=== PATIENT | female | born 1985 | race Caucasian/White ===

== ENCOUNTER 2022-12-16 07:12 | Outpatient (CLI) | payer OTHER, SELFPAY ==
--- NOTE | 2022-12-16 07:15 | CRLHL7_ITS ---
For Patients: As a result of the Century Cures Act, medical imaging exams and procedure reports are released immediately into your electronic medical record. You may view this report before your referring provider. If you have questions, please contact your health care provider. INDICATION: 37 year-old female. Genetic susceptibility the other malignant neoplasm. TECHNIQUE: Transabdominal and transvaginal pelvic ultrasound. FINDINGS: The uterus is retroverted and measures 8.3 x 4.6 x 6.8 cm. The endometrial stripe measures 5 mm. Normal-sized ovaries containing numerous small follicles. The right ovary measures 4.3 x 2.4 x 2.5 cm and the left ovary measures 4.3 x 1.5 x 2.5 cm. Blood flow is identified in the ovaries. No free pelvic fluid. IMPRESSION: Retroverted uterus. No uterine or ovarian masses. Dictated by Liang Goodwin MD @ 12/16/2022 8:26:22 AM (Electronically Signed)
== END 2022-12-16 07:13 | disposition home or self-care (01) ==
LOC: US 07:13
PROVIDERS: PCP Family Medicine; Visit Provider Obstetrics & Gynecology
DX: Z15.09 Genetic susceptibility to other malignant neoplasm (principal)
CPT/HCPCS: 76830; 76856

== ENCOUNTER 2023-03-05 08:44 | Day surgery (SDC) | payer OTHER, SELFPAY ==
[2023-03-05] VITALS (33 sets, daily range): BP systolic 101–128; BP diastolic 64–82; PULSE 67–107; RESP 12–20; TEMP 36.5–37.3; O2SAT 93–100; BMI 27.3
[2023-03-05] MEDS: LACTATED RINGERS 1000 ML 1,000 ML 100 ML IV (08:45)
[2023-03-05 09:03] LABS: Ur HCG Qualitative* Negative (Negative)
[2023-03-05] MEDS: SODIUM CHLORIDE 0.9 % (FLUSH) 10 ML SYRINGE IVF (09:18)
[2023-03-05 09:31] LABS: Hemoglobin* 12.6 gm/dL (12.0-16.0)
[2023-03-05 10:04] LABS: Creatinine* 0.8 mg/dL (0.5-1.5); Est. Creatinine Clearance* 84.96; Estimated Glomerular Filt Rate 96 ml/min
--- NOTE | 2023-03-05 11:30 | W.PM.H&PU_ITS ---
History & Physical Update History & Physical Update H&P Reviewed and patient assessed: No changes noted H&P Updates: Preoperative diagnosis: Triplett syndrome Planned procedures: Total laparoscopic hysterectomy with bilateral salpingo- oophorectomy, pelvic washings, cystoscopy Physical exam: General: No acute distress Psych: Alert and oriented x3, full affect HEENT: Normocephalic, atraumatic Heart: Regular rate and rhythm, no murmur rub or gallop Lungs: Clear to auscultation bilaterally Labs: Blood type A positive Hemoglobin 12.6 Creatinine 0.8 HCG negative
--- NOTE | 2023-03-05 11:48 | P.NB_ITS ---
Nerve Block Nerve Block Time Seen by Provider: 12:18 Date Seen: 03/05/23 Type of block requested by surgeon for post-operative analgesia: TAP Side: bilateral Time out performed: Yes Verification of patient name: Yes Verification of date of : Yes Site marking: site marked Name of person performing procedure: Mario Continuous monitoring Was continuous monitoring of O2 sat, B/P, monitoring tech, recorded every 15 minutes?: Yes Procedure Checklist: sterile prep, needles and gloves Ultrasound guided. Images saved: Yes Medications given in 5ml increments after negative aspiration: Marcaine %: 0.25 mL: 30 Needle gauge: 20 and Exparel mL: 10 Patient tolerated procedure well: Yes Additional comments: Needle noted adjacent to nerve Block Charges Block Charge (with Pro Fee): TAP Bilateral Use of Ultrasound Machine for Block: Yes- US Guidance/pain block
--- NOTE | 2023-03-05 11:48 | W.ANESCHARGE ---
Anesthesia Charges Start Date/Time Anesthesia Start Date: 03/05/23 Anesthesia Start Time: 12:12 Stop Date/Time Anesthesia Stop Date: 03/05/23 Anesthesia Stop Time: 15:03
[2023-03-05] MEDS: CEFAZOLIN 2 GM INJ IVP (12:22)
--- NOTE | 2023-03-05 15:04 | W.ANESCHARGE ---
Anesthesia Charges Start Date/Time Anesthesia Start Date: 03/05/23 Anesthesia Start Time: 12:12 Stop Date/Time Anesthesia Stop Date: 03/05/23 Anesthesia Stop Time: 15:03
--- NOTE | 2023-03-05 15:05 | W.PM.GYNPROC ---
Procedure Note Pre-op diagnosis: Triplett Syndrome Post-op diagnosis: same Procedure: Risk-reducing laparoscopic hysterectomy with bilateral salpingo-oophorectomy, pelvic washings, cystoscopy Anesthesia: GETA Complications: None Surgeon: La Butts MD Paper Cup Handle Machine Operator: Nayeli Omalley Estimated blood loss (mL): 25 IV fluids (mL): 1,500 Pathology: specimen obtained, sent to pathology Condition: stable Disposition: PACU Findings: 1. Exam under anesthesia revealed a normal appearance to the vulva, vagina and cervix. Bimanual exam revealed a retroverted uterus without any palpable masses. There were no palpable adnexal masses. 2. Upon laparoscopy, survey of the upper abdomen revealed a normal appearance to the inferior edge of the liver, gallbladder and stomach. Bowels were grossly normal appearance, as was the appendix. Survey of the pelvis revealed normal appearance to the uterus. Bilateral tubes and ovaries were normal in appearance. The cul-de-sac and bladder reflection were normal in appearance. Procedure Description: Patient was taken to the operating room with IV running. She received cefazolin in preoperative prophylaxis. She was positioned in dorsal lithotomy position with her legs fully supported in Yellofin stirrups. General anesthesia was administered. She was prepped and draped in the usual sterile fashion. Pelvic exam under anesthesia was performed for the above-noted findings. Speculum was inserted. Cervix visualized and grasped along its anterior lip with a single-tooth tenaculum. Cervix was dilated with Hegar dilators to accommodate the VCare uterine manipulator. A small-sized colpotomizer cup was selected. The tip of the uterine manipulator was inserted through the cervix into the uterine cavity and the balloon was inflated. The speculum was removed. The colpotomy cup was advanced, surrounding the cervix, and the proximal occluder was moved up along the shaft of the VCare and fixed in place. Grey catheter was placed. Patient's legs were then placed in neutral position. Attention was turned to patient's abdomen. Infraumbilical area was infiltrated with a small amount of Marcaine. A 5 mm infraumbilical incision was made with a scalpel and carried down to the underlying layer of fascia with the hemostat. 5 mm camera was placed within the 5 mm Fios Kii trocar, and advanced under direct visualization through the anterior abdominal wall into the peritoneal cavity, while tenting up the anterior abdominal wall. The trocar was removed. The balloon was inflated, holding the port in place. Pneumoperitoneum was achieved. Survey of the abdomen and pelvis revealed the above-noted findings. Three additional port sites were created. The first was in the patient's left lower quadrant, just superomedial to the left ASIS. The second was a hand's breadth superior to and slightly medial to the first. The third was in the patient's right lower quadrant, just superomedial to the right ASIS. An 11 mm incision was made in the left lower quadrant, and a 5 mm incision was made at the other 2 sites, after assuring that large vessels were out of harm's way. A 10 mm Fios Kii port was inserted at the left lower quadrant site, and a 5 mm Fios Kii port at each of the other 2 sites, under direct visualization and without complication. The balloon on each of the four ports was inflated, holding each in place. Attention was first turned to the left infundibulopelvic ligament, which was held away from the pelvic sidewall and divided 2 cm away from the lateral end of the ovary, using the Thunderbeat bipolar cautery device. Dissection was then carried anteriorly along the broad ligament. The left round ligament was cauterized and transected in its midportion. The leaves of the broad ligament were , and the bladder flap was created anteriorly, moving from [id number]. The bladder reflection was found to be well below the colpotomy cup. The left uterine artery was 1st skeletonized, then cauterized and transected. Attention was then turned to the right infundibulopelvic ligament, which was similarly held away from the pelvic sidewall and divided 2 cm away from the lateral end of the ovary. Dissection was carried anteriorly along the broad ligament. The broad ligament was cauterized and transected in its midportion. The leaves of the broad ligament were , and a bladder flap was created, moving laterally to medially, meeting the dissection that was begun on left side. The right uterine artery was 1st skeletonized, then cauterized and transected. The vaginal fornix was then entered anteriorly with the monopolar paddle, using the colpotomizer cup as a guide. This device was moved along the circumference of the colpotomizer cup, until the uterus and cervix were freed from their attachments to the pelvis. The uterus was pulled into the patient's vagina, maintaining the pneumoperitoneum. A 2 0 V lock suture was inserted through the left lower quadrant port. Using laparoscopic needle drivers, the vaginal cuff was closed in a running fashion, incorporating the distal most aspects of the uterosacral ligaments bilaterally into the closure. Closure proceeded from right to left, and then an additional stitch were placed moving more medially to assure that the closure remained intact. Suture was cut. Ports were left in place but all instruments were removed and pneumoperitoneum was released. Patient's legs were placed back in lithotomy position. The uterus was removed from the vagina and was sent to pathology for further analysis. Speculum exam was performed, showing an intact cuff with no obvious active bleeding. The Grey catheter was removed from the bladder, and the cystoscope was assembled with saline inflow, outflow, and light cord in place. Cystoscope was advanced through the urethra into the bladder, and survey of the mucosa revealed a normal appearance. The bladder dome was intact. Bilateral ureteral jets were noted. Cystoscope was removed and Grey catheter replaced. Patient's legs were again placed in neutral position. Insufflator was reattached to the port and pneumoperitoneum again achieved. Survey of the pelvis revealed hemostasis. The 11 mm Fios Kii port in the left lower quadrant was removed after balloon on the port was deflated. The Ankush-Joey laparoscopic closure device was inserted through this port. With the help of this device, the fascia was closed with a single suture of 0-Vicryl. Procedure was deemed complete. The balloons of all remaining port sites were deflated, and all ports were removed after pneumoperitoneum was released. The skin of each port site was closed in a subcuticular fashion with 4 0 Monocryl. Surgical glue was applied above this. Patient tolerated procedure well and was taken to recovery area in stable condition.
--- NOTE | 2023-03-05 15:12 | PC.NURSE ---
IV patent and running with no complications noted upon arrival to PACU1.
[2023-03-05] MEDS: HYDROmorphone 0.5 mg/0.5 ml inj IVP ×3 (15:29→15:51)
[2023-03-05] MEDS: KETOROLAC 30 MG/ML inj IVP ×2 (16:07→21:31)
[2023-03-05] MEDS: ACETAMINOPHEN INJ 1,000 MG/100 ML VIAL 400 MG IVPB (16:10)
[2023-03-05] MEDS: fentaNYL 100 MCG/2 ML inj 50 MCG IVP (16:21)
[2023-03-05] MEDS: ACETAMINOPHEN 325 MG TABLET 650 MG PO (18:40)
[2023-03-05] MEDS: LACTATED RINGERS 1000 ML 1,000 ML 125 ML IV (18:42)
--- NOTE | 2023-03-05 19:09 | PC.NURSE ---
End of Shift: Patient pleasant and cooperative. Patient vitally stable, lungs clear, BS WNL, IV running LR at 125. Abdominal lap sites x4 C/D/I. Patient currently rates pain 2/10, only tylenol given. Patient has aquaK pad applied to abdomen. Patient taking in fluids and tolerating regular diet, denies nausea. Grey intact and draining.
[2023-03-06 03:12] VITALS: BP 132/94; PULSE 90; RESP 18; TEMP 37.6; O2SAT 99
[2023-03-06] MEDS: KETOROLAC 30 MG/ML inj IVP (03:16)
[2023-03-06 05:20] LABS: Hemoglobin* 11.5 gm/dL (12.0-16.0)
[2023-03-06 05:44] LABS: Creatinine* 0.6 mg/dL (0.5-1.5); Est. Creatinine Clearance* 113.27; Estimated Glomerular Filt Rate 117 ml/min
--- NOTE | 2023-03-06 06:46 | PC.NURSE ---
[id number]: Patient pleasant and cooperative with cares. Rates pain 2-4/10 with scheduled medications for relief. Aqua-K pad used intermittently. Grey d/c. Independent. Eating and voiding.
[2023-03-06 08:30] VITALS: BP 120/82; PULSE 76; RESP 16; TEMP 37; O2SAT 100
--- NOTE | 2023-03-06 09:00 | P.DS_ITS ---
DS: Providers Provider Time Seen by Provider: 07:15 Date Seen: 03/06/23 Primary care physician: Jenny Martin MD Attending Physician on discharge: Kristal العراقي MD Date of Discharge: 03/06/23 DS: Diagnosis Discharge Diagnosis (1) Status post hysterectomy: Status: Acute Problem details: Total laparoscopic hysterectomy, bilateral salpingo-ophorectomy. SERVICE ASSISTANT-Discharge Summary Hospital Course Hospital Course Narrative: Patient is a 37 year old admitted on 03/05/23 for elective surgery. Indication for surgery: Triplett Syndrome. She had an uncomplicated surgery. Postoperative course has been uneventful. Vitals have been stable. She has remained afebrile. Today, on postoperative day 1, she reports the pain is well controlled. She has been able to ambulate Without difficulty. She is tolerating regular diet. She is passing flatus. Grey catheter has been removed, and she is voiding without difficulty. Time Spent with Patient Time attestation: Total time spent providing and/or coordinating discharge services: Time spent: Less than 30 minutes SERVICE ASSISTANT - Exam Physical Exam: Vital signs: Temp Pulse Resp BP Pulse Ox O2 Del Method 98.6 F 76 16 120/82 100 Room Air 03/06/23 08:30 03/06/23 08:30 03/06/23 08:30 03/06/23 08:30 03/06/23 08:30 03/06/23 08:30 Narrative: VITAL SIGNS: As noted above. GENERAL APPEARANCE: Alert, cooperative female in no acute distress. MOOD & AFFECT: Normal. .ABDOMEN: Soft, non-distended and appro priately tender, incisions healing well no surrounding erythema, induration or abnormal discharge. : Minimal spotting. EXTREMITIES: Nonedematous. Well perfused. Nontender. SERVICE ASSISTANT - DS: Data Data Completed and Pending Labs on day of discharge: Labs from last 24 hours 03/06/23 03/05/23 03/05/23 05:10 09:21 08:44 Hgb 11.5 L 12.6 Creatinine 0.6 0.8 Estimated Creat Clear 113.27 84.96 Estimated GFR 117 96 Urine HCG, Qual Negative Blood Type A Positive Antibody Screen NEGATIVE Procedures Procedures: Procedures Operation Date: 03/05/23 13:05 Actual Procedure Side Surgeon p Total Laparoscopic Hysterectomy, bilateral Salpingectomy, Oophorectomy, Cyst oscopy, Pelvic Washings La Butts MD Discharge Plan Discharge Disposition: Home, Self-Care Discharging Surgeon: Fariba العراقي Follow-Up Appointment: [address] [facility] clinic Prescriptions: Continued sertraline 100 mg tablet 200 mg PO DAILY Qty: 180 3RF Rx Instructions: 2 tab daily No Action acetaminophen 325 mg capsule 650 mg PO Q6H PRN estradiol 1 mg tablet 1 mg PO QDAY Qty: 30 12RF Activity Level: Activity as Tolerated and No Weight Bearing Activity Detail: No lifting more than 15 pounds for 6 weeks, nothing vaginally for that same amount of time. Discharge Diet: Regular Patient Instructions: Ibuprofen (By mouth), Surgical Site Infections (DC), Laparoscopic Hysterectomy (DC) Forms: Work/School Release Follow-up: Jenny Martin MD [Primary Care Provider] - La Butts MD [Staff Physician] - 03/20/23 8:45 am ([facility]) Discharge Orders: Discharge Order (Routine); Ordered 03/06/23 Ordered By: Fariba العراقي
[2023-03-06] MEDS: SERTRALINE 100 MG TABLET 200 MG PO (09:14)
[2023-03-06] MEDS: IBUPROFEN 600 MG TABLET PO (09:59)
--- NOTE | 2023-03-06 10:13 | PC.NURSE ---
Discharge: Patient pleasant and cooperative. Patient vitally stable, lungs clear, BS WNL, IV removed, catheter intact. Patient abdominal lap sites x4 C/D/I. Patient rates pain at most 3/10, schedule tylenol given. Patient tolerating regular diet and urinating well. Patient signed belongings sheet and discharge form. Patient had no further questions regarding discharge. Patient left the floor to home by wheelchair at 1011.
== END 2023-03-06 10:11 | disposition home or self-care (01) ==
LOC: MEDSURG 12:02 → OR 13:47 → MEDSURG 13:49
PROVIDERS: PCP Family Medicine; Visit Provider Obstetrics & Gynecology
PROC: 0UT94ZZ Resection of Uterus, Percutaneous Endoscopic Approach (ICD-10-PCS; CPT 58571; principal; 2023-03-05 12:45)
DX: Z15.09 Genetic susceptibility to other malignant neoplasm (principal); Z80.3 Family history of malignant neoplasm of breast; Z80.49 Family history of malignant neoplasm of other genital organs; G89.18 Other acute postprocedural pain
CPT/HCPCS: 58571; 00840; 36415; 64488; 76942; 81025; 82565; 85018; 86850; 86900; 86901; 88305; 88307; A9270; C9290; J0131; J0330; J0665; J0690; J1100; J1170; J1200; J1885; J2371; J2405; J2704; J3010; J3475; J7120

== ENCOUNTER 2024-04-05 09:11 | Outpatient (CLI) | payer BC, SELFPAY ==
--- NOTE | 2024-04-05 09:15 | CRLHL7_ITS ---
For Patients: As a result of the Century Cures Act, medical imaging exams and procedure reports are released immediately into your electronic medical record. You may view this report before your referring provider. If you have questions, please contact your health care provider. BILATERAL BREAST MRI WITHOUT AND WITH GADOLINIUM CLINICAL HISTORY: Personal history of Triplett syndrome. Family history breast cancer. INDICATION FOR BREAST MRI: Screening breast MRI in this high-risk woman. COMPARISON STUDIES: Bilateral mammogram 10/16/2023. CONTRAST: Dotarem 20 mL. TECHNIQUE: The patient was positioned prone using a breast coil. Multiple imaging sequences were obtained using 1-1.5 mm thick slices with no gap. The image sequences include T2-weighted STIR in the axial plane, T1-weighted nonfat-saturated gradient echo in the axial plane, pre- and post-contrast T1-weighted FLASH 3D with fat suppression in the axial plane, and T1-weighted FLASH high resolution 3D with fat suppression in the sagittal plane. Image post-processing was performed on a [employer] workstation. Complex 3D rendering including maximum intensity projections (MIPS) and volumetric renderings were obtained to optimize visualization of the extent of pathology and relationship to the nipple, skin, and chest wall. This aids in determining feasibility of breast conservation surgery. Subtraction, multiplanar reconstruction, mean curve determination, and angiogenesis mapping were also performed. The study was technically adequate. FINDINGS: Amount of Fibroglandular Tissue: Scattered fibroglandular tissue. Breast Background Enhancement: Mild background enhancement. No suspicious mass or non-mass enhancement in either breast. No suspicious lymph nodes. IMPRESSIONS AND RECOMMENDATIONS: Negative for signs of malignancy. Follow-up with annual screening mammography. If continuing breast MRI this is best offset from the mammogram by 6 months. BI-RADS Category 1: Negative Dictated by Ashley Dodge MD @ 04/06/2024 11:02:03 AM jj/Dictated by: Ashley Dodge MD @ 04/06/2024 2:46:00 PM (Electronically Signed)
--- OUTSIDE RECORDS SUMMARY | 2024-04-05 09:15 | XMS_ITS | Referral Summary ---
Author Organization [facility] Address [address] [place] [id number] Care Team Providers Care Fish Hatchery Manager Name Role Phone No Ref-Primary, Physician Primary Care Provider Social History Tobacco Use Types Packs/Day Years Used Date Smoking Tobacco: Never Assessed Sex and Gender Information Value Date Recorded Sex Assigned at Not on file Gender Identity Not on file Sexual Orientation Not on file Plan of Treatment Not on file Care Teams Fish Hatchery Manager Relationship Specialty Start Date End Date No Ref-Primary, Physician PCP - General 07/29/19
--- OUTSIDE RECORDS SUMMARY | 2024-04-05 09:15 | XMS_ITS | Clinical Summary ---
Author Organization [facility] Address [address] [place] [id number] Care Team Providers Care Cell Changer Name Role Phone No Ref-Primary, Physician Primary Care Provider Social History Tobacco Use Types Packs/Day Years Used Date Smoking Tobacco: Never Assessed Sex and Gender Information Value Date Recorded Sex Assigned at Not on file Gender Identity Not on file Sexual Orientation Not on file Plan of Treatment Not on file Care Teams Cell Changer Relationship Specialty Start Date End Date No Ref-Primary, Physician PCP - General 07/29/19
--- OUTSIDE RECORDS SUMMARY | 2024-04-05 09:15 | XMS_ITS | Clinical Summary ---
Author Organization [employer] [facility] Address [place], [place] [address] Care Team Providers Care Child Support Agent Name Role Phone Haylee Figueredo Primary Care Provider [phone] Allergies Active Allergy Reactions Criticality Noted Date Comments Vortioxetine Other - Describe In Comment Field Unknown 03/11/2022 Makes OCD worse Medications Medication Sig Dispensed Refills Start Date End Date Status estradioL (ESTRACE) 1 mg tablet Take 1 mg by mouth once daily. 04/28/2023 Active hydrOXYzine HCL (ATARAX) 10 mg tabletIndications: Mixed obsessional thoughts and acts Take 1-2 Tablets (10-20 mg) by mouth 3 times daily if needed for Anxiety (sleep). 90 Tablet 1 03/10/2024 Active sertraline (ZOLOFT) 100 mg tabletIndications: Generalized anxiety disorder Take 2 Tablets (200 mg) by mouth once daily in the morning. 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 Obsessive compulsive disorder 12/26/2015 Generalized anxiety disorder 12/10/2015 Encounters Date Type Department Care Team Description 04/02/2024 Travel 03/30/2024 Telephone [facility] [address] [place] [address] Alexia Blair, DAVID Care Coordination (TMS) 03/30/2024 Telephone [facility] [address] [place] [address] Alexia Blair, DAVID Error-please disregard 03/30/2024 [facility] [address] [place] [address] Alexia Blair, DAVID Error-please disregard 03/25/2024 [facility] [address] [place] [address] Alexia Blair, DAVID benefits and eligibility 03/22/2024 11:15 AM CDT Telemedicine [facility] [place] [address] [place] [address] Lida Murray, MARIZA Telehealth; Medication Management (Things are not great) 03/22/2024 Telephone [facility] [address] [place] [address] Alexia Blair, DAVID Care Coordination (TMS) 03/22/2024 Travel 03/15/2024 1:30 PM CDT Office Visit [facility] [place] [address] [place] [address] Maria L Sunshine AuD Hearing Problem (Hearing test) 03/15/2024 Travel 03/10/2024 7:15 AM CDT Telemedicine [facility] [place] [address] [place] [address] Lida Murray, MARIZA Telehealth; Mental Health Intake (Medication Consult, medication are not working) 03/09/2024 Travel 02/29/2024 Refill [facility] [place] [address] [place] [address] Haylee Figueredo PA Refill Request (Sertraline) 02/19/2024 8:15 AM CDT Office Visit [facility] [place] [address] [place] [place] [address] Haylee Figueredo PA Medication Management 02/19/2024 Travel from Last 3 Months Immunizations Name Administration Dates Next Due COVID-19 VACCINE SPIKEVAX (M ODERNA 50MCG/0.5ML) 12YO+ PFS 08/06/2023 COVID-19 vaccine (Moderna 100mcg/0.5mL) PF, MDV 01/03/2021 Influenza, IIV3 (Age 6-35 mos) 04/20/2014 Influenza, IIV4 08/06/2023,,04/20/2020,04/08/20 19,07/03/2017,04/23/2016,05/04/2015 Tdap 07/14/2019,04/20/2014,07/23/2010 Family History Medical History Relation Name Comments Cancer-breast Maternal Grandmother Kaykay also M I Cancer Mother uterine Cancer-colon Paternal Grandfather Cancer-breast Paternal Grandmother Oraletta Relation Name Status Comments Maternal Grandmother Kaykay Mother Paternal Grandfather Paternal Grandmother Oraletta Social History Tobacco Use Types Packs/Day Years Used Date Smoking Tobacco: Never Smokeless Tobacco: Never Tobacco Cessation:Counseling Given: Yes Alcohol Use Standard Drinks/Week Comments Yes 7 (1 standard drink = 0.6 oz pur e alcohol) 1 wine daily PHQ-2 Answer Date Recorded PHQ-2 TOTAL SCORE 6 03/22/2024 Social Connections Answer Date Recorded Frequency of Communication with Friends and Fami ly 0 02/19/2024 Financial Resource Strain Answer Date R ecorded Difficulty of Paying Living Expenses 3 02/19/2024 Difficulty of Paying Living Expenses Not on file 02/19/2024 Food Insecurity Answer Date Recorded Worried About Running Out of Food in the Last Ye ar 1 02/19/2024 Transportation Needs Answer Date Record ed Lack of Transportation (Medical) 1 02/19/2024 Housing Stability Answer Date Recorded Unable to Pay for Housing in the Last Year 1 02/19/2024 Sex and Gender Information Value Date Recorded Sex Assigned at Not on file Gender Identity Not on file Sexual Orientation Not on file Obstetrics History Para Term AB IAB SAB Ectopic Multiple Livin g Live Births 1 1 1 Date Outcome GA Total Labor Labor/2nd/3rd Weight Sex Type Anes PTL Shirin A1 A5 Name Clin Term CS-Unsp ec Comments LTCS for malpresentation- br ow Last Filed Vital Signs Vital Sign Reading Time Taken Comments Blood Pressure 100/66 02/19/2024 8:20 AM CDT Pulse 82 02/19/2024 8:20 AM CDT Temperature 36.6 ??C (97.9 ??F) 10/16/2023 1:46 PM CD T Respiratory Rate 16 10/16/2023 1:46 PM CDT Oxygen Saturation 97% 02/19/2024 8:20 AM CDT Inhaled Oxygen Concentration - - Weight 69.7 kg (153 lb 9.6 oz) 02/19/2024 8:20 A M CDT Height 163.8 cm (5' 4.5) 10/16/2023 1:46 PM CDT Body Mass Index 25.96 10/16/2023 1:46 PM CDT Plan of Treatment Upcoming Encounters Date Type Department Care Team (Late st Contact Info) Description 04/06/2024 1:00 PM CDT Telemedicine [facility] [address] [place], [place] [id number] Aaron Villa MD [address] [id number] 04/20/2024 11:45 AM CDT Telemedicine [facility] [place] [address] [place] [address] Lida Murray, MARIZA [address] [place] [address] Health Maintenance Due Date Last Done Comments HIV for age 15-65 09/01/1998 Hepatitis C screening for age 18-79 09/01/2001 COVID-19 vaccine series ( season) 2024 08/06/2023, 01/03/2021, 10/18/2020 Influenza for age 9-49 02/28/2024 , 04/30/2021, 04/20/2020, Additional history exists BMI (ht and wt on same day) for age 18+ 10/15/2024 10/16/2023, 11/11/2022, 03/05/2018, Additional history exists Depression screening for age 12+ 03/25/2025 03/25/2024, 03/22/2024, 03/22/2024, Additional history exists Tetanus booster 07/14/2029 07/14/2019, 03/30, 07/23/2010, Additional history exists Pap test for age 21-65 Discontinued 9, 02/11/2019, 05/27/2007, Additional history exists Tdap Completed 07/14/2019, 03/30, 07/23/2010 Pneumococcal series for age 6-64 Aged Out No longer eligible based on patient's age to complete this topic Procedures Procedure Name Priority Date/Time Associated Diagnosis Comments HARDWARE DESIGNER THIN PREP PAP SCREEN IMAGED Routine 02/11/2019 12:00 PM CDT from Last 3 Months or Most Recently Relevant to Health Maintenance Results * HARDWARE DESIGNER THIN PREP PAP SCREEN IMAGED (02/11/2019 12:00 PM CDT) Case Report Gynecologic Cytology Report ? Case: [id number] ? Authorizing Provider: ??La Butts MD ?? Collected: ? 02/11/2019 1200 ? Ordering Location: ? [facility] ?Received: ?02/14/2019 0937 ? First Screen: ?Jeffy Wallace ? Specimen: ?HARDWARE DESIGNER ThinPrep Vial Screening, Cervical/Vaginal ? 02/22/2019 9:46 AM CDT [facility] INTERPRETATION/ RESULT NEGATIVE FOR INTRAEPITHELIAL LESION OR MALIGNANCY (NIL) (none) 02/22/2019 9:[address] [facility] IMEN ADEQUACY Satisfactory for evaluation Endocervical component present 02/22/2019 9:[address] [facility] HPV REQUEST HPV and PAP 02/22/2019 9:46 AM CDT [facility] Menstrual Status 02/22/2019 9:[address] [facility] Automated Review Successful 02/22/2019 9:[address] [facility] Comment:Specimen processed s uccessfully by automated manager life insurance device, ThinPrep Imaging System, [employer] ANCILLARY TESTING HARDWARE DESIGNER HPV Ordered, Please see separate report 02/22/2019 9:[address] [facility] Note The pap test is a screening technique, not a diagnostic procedure. ??It is used primarily to screen for squamous cancers and precursor lesions. ??Published studies have shown that it is subject to both false negative and false positive results. ??The pap test should not be used as the sole means to diagnose or exclude pre-malignant and malignant lesions. Cytology is screened and interpreted at [facility] - [address], [place] [address] and [facility] - [address]; [place] [address] and [facility] - [address]; [place] [address] and [facility] [address]; [place] [address] 02/22/2019 9:[address] [facility] Other (Cervical/Vagina l) 02/11/2019 12:00 PM CDT 02/14/2019 9:37 AM CDT La Butts MD PATHOLOGY/CYTOLOG Y [facility] [address] [place] [address], from Last 3 Months or Most Recently Relevant to Health Maintenance Care Teams Child Support Agent Relationship Specialty Start Date End Date Haylee Figueredo PA [address] [place] [address] PCP - General Physician Order Entry 02/19/24
== END 2024-04-05 09:12 | disposition home or self-care (01) ==
LOC: MRI 09:12
PROVIDERS: PCP Family Medicine; Visit Provider Physician Assistant Surgical
DX: Z12.39 Encounter for other screening for malignant neoplasm of breast (principal); Z15.09 Genetic susceptibility to other malignant neoplasm; Z91.89 Other specified personal risk factors, not elsewhere classified; Z80.3 Family history of malignant neoplasm of breast
CPT/HCPCS: 77049; A9575

== ENCOUNTER 2024-10-25 08:59 | Outpatient (CLI) | payer BC, SELFPAY | END 2024-10-25 09:00 | disposition home or self-care (01) | PROVIDERS: PCP Family Medicine; Visit Provider Obstetrics & Gynecology | DX: Z13.6 Encounter for screening for cardiovascular disorders (principal); Z13.1 Encounter for screening for diabetes mellitus | CPT/HCPCS: 80061; 82947 ==